=== PATIENT | male | born 1990 | race Two or more races ===

== ENCOUNTER 2018-10-25 11:06 | Emergency (ER) | payer OTHER ==
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
[2018-10-25 12:25] VITALS: BP 142/90
== END 2018-10-25 12:43 | disposition home or self-care (01) ==
DX: S00.83XA Contusion of other part of head, initial encounter (principal); Y04.8XXA Assault by other bodily force, initial encounter; Y99.0 Civilian activity done for income or pay

== ENCOUNTER → 2018-10-25 | Emergency (ER) | payer SELFPAY ==